=== PATIENT | female | born 1995 | race Caucasian/White ===

== ENCOUNTER 2016-08-26 02:17 | Emergency (ER) | payer SELFPAY ==
[~2016-08-26] VITALS: Ht 142.2 cm; Wt 47.7 kg
[2016-08-26] MEDS ORDERED: IBUP-1546 PO (02:20)
[2016-08-26] MEDS ORDERED: SODIUM CHLORIDE 0.9% 1,000 ML IV ONE (02:33)
[2016-08-26] MEDS ORDERED: ONDANSETRON HCL 4 MG/2 ML VIAL IVP ONE (02:45)
[2016-08-26] MEDS ORDERED: DONNATAL/LIDOCAINE/MAALOX 55 ML BOTTLE PO ONE (02:45)
[2016-08-26] MEDS ORDERED: KETOROLAC TROMETHAMINE 30 MG/ML VIAL IVP ONE (02:45)
[2016-08-26] MEDS ORDERED: ONDANSETRON HCL 4 MG/2 ML VIAL IM ONE (03:15)
[2016-08-26] MEDS ORDERED: MORPHINE SULFATE 4 MG/ML SYRINGE IM ONE (03:15)
[2016-08-26 04:16] VITALS: BP 115/70
== END 2016-08-26 04:20 | disposition home or self-care (01) ==
LOC: EMS 02:21
DX: K80.50 Calculus of bile duct without cholangitis or cholecystitis without obstruction (principal)
CPT/HCPCS: 99283; Z7610; J1885; J2405